=== PATIENT | male | born 1970 | race Two or more races ===

== ENCOUNTER 2022-11-20 19:24 | Inpatient (IN) | payer BC ==
[~2022-11-20] VITALS: Ht 180.3 cm; Wt 104.3 kg
[2022-11-20] MEDS ORDERED: RESTORA CAPSUL1 EACH PO (19:40)
[2022-11-20] MEDS ORDERED: MILK THISTLE175 M1 PO (19:41)
[2022-11-20] MEDS ORDERED: PHAZYME250 MG PO (19:41)
[2022-11-25] MEDS ORDERED: TRAM1TAB98 PO (08:13)
[2022-11-25] MEDS ORDERED: PEPCID AC20 MG PO (08:13)
[2022-11-25] MEDS ORDERED: INTESTINEX680 M1 PO (08:14)
== END 2022-11-25 10:09 | disposition home or self-care (01) | DRG 330 ==
LOC: ER 19:24 → MEDJ 23:10 → SURH 23:10
PROVIDERS: ADMIT Surgery; ATTEND Surgery
PROC: 07BB4ZZ Excision of Mesenteric Lymphatic, Percutaneous Endoscopic Approach (ICD-10-PCS; 2022-11-22)
PROC: 0DTF4ZZ Resection of Right Large Intestine, Percutaneous Endoscopic Approach (ICD-10-PCS; principal; 2022-11-22 07:00)
DX: D12.0 Benign neoplasm of cecum (principal); K62.5 Hemorrhage of anus and rectum